=== PATIENT | female | born 1950 | race Two or more races ===

== ENCOUNTER → 2017-04-28 | Day surgery (SDC) | payer OTHER ==
[~2017-04-28] MED LIST: FLUT16SP NS; IV RINGERS,LACTATED 1000ML 1,000 ML IV SCH; LIDOCAINE 1% PF 2 ML VIAL. ID PRN; LIDOCAINE 2% PF Vial for OR 5 ML VIAL. ONE; MIDAZOLAM HCL/PF 2 MG/2 ML VIAL. IV PRN; PROPOFOL 40 ML IV ONE; fentaNYL PF VIAL 100 MCG/2 ML VIAL IV PRN
[2017-04-28 10:48] VITALS: BP 118/67
== END | disposition home or self-care (01) ==
LOC: SURG 08:35
PROVIDERS: ATTEND Internal Medicine Gastroenterology
DX: Z09 Encounter for follow-up examination after completed treatment for conditions other than malignant neoplasm (principal); Z87.19 Personal history of other diseases of the digestive system; K64.0 First degree hemorrhoids; Z83.71 Family history of colonic polyps; Z98.51 Tubal ligation status; Z90.710 Acquired absence of both cervix and uterus; Z72.89 Other problems related to lifestyle; Z91.040 Latex allergy status
CPT/HCPCS: 45378; J2704; J2001